=== PATIENT | male | born 1965 | race Caucasian/White ===

== ENCOUNTER 2020-05-03 05:58 | Day surgery (SDC) | payer OTHER ==
[2020-04-30 10:15] LABS: COVID AG,FIA SOURCE NASOPHARYNGEAL
[~2020-05-03] VITALS: Ht 175.3 cm; Wt 90.0 kg
[~2020-05-03 05:58] MED LIST: OMEP20 PO; SODIUM CHLORIDE 0.9% 0 ML ONE; SODIUM CHLORIDE 0.9% 1,000 ML ONE
[2020-05-03] MEDS ORDERED: SODIUM CHLORIDE 0.9% 1,000 ML IV ONE (06:30)
[2020-05-03] MEDS ORDERED: FentaNYL CITRATE-PF 100 MCG/2 ML VIAL ONE (07:27)
[2020-05-03] MEDS ORDERED: MIDAZOLAM HCL 2 MG/2 ML VIAL ONE (07:27)
[2020-05-03] MEDS ORDERED: MethylPREDNISolone SOD SUCC 125 MG/2 ML VIAL IVP ONE (08:30)
[2020-05-03] MEDS ORDERED: MethylPREDNISolone SOD SUCC 125 MG/2 ML VIAL ONE (08:41)
[2020-05-03] MEDS ORDERED: BENZOCAINE 20% 50 MCG/SPRAY 57 GM ONE (16:52)
[2020-05-03] MEDS ORDERED: LIDOCAINE 2% 30 ML JELLY ONE (16:52)
[2020-05-03] MEDS ORDERED: LIDOCAINE 4% 50 ML SOLUTION ONE (16:52)
[2020-05-03] MEDS ORDERED: ALBUTEROL SULFATE 2.5 MG/0.5 ML NEB SOLUTION NEB ONE (16:52)
[2020-05-03] MEDS ORDERED: OXYGEN THERAPY IH SCH (20:00)
== END 2020-05-03 10:05 | disposition home or self-care (01) ==
LOC: SURGERY 05:58
PROVIDERS: ATTEND Internal Medicine Critical Care Medicine
DX: J38.4 Edema of larynx (principal); B37.0 Candidal stomatitis; K21.9 Gastro-esophageal reflux disease without esophagitis; Z98.890 Other specified postprocedural states
CPT/HCPCS: 31623; 31624; 71045; 87015; 87070; 87101; 87206; 87220; 87426; C9803; J2250; J2930; J3010; J7030; 88108; J7613; Z7610